=== PATIENT | male | born 1970 | race Asian ===

== ENCOUNTER 2023-09-20 12:33 | Emergency (ER) | payer OTHER ==
[~2023-09-20] VITALS: Ht 162.6 cm; Wt 75.5 kg
[2023-09-20 16:48] VITALS: BP 134/92; PULSE 76; RESP 18; TEMP 97.8; O2SAT 99
== END 2023-09-20 16:59 | disposition home or self-care (01) ==
LOC: ER 12:34
DX: S30.0XXA Contusion of lower back and pelvis, initial encounter (principal); W19.XXXA Unspecified fall, initial encounter; Y93.89 Activity, other specified; Y92.89 Other specified places as the place of occurrence of the external cause; Y99.8 Other external cause status
CPT/HCPCS: 72040; 72100; 73030; 73630; 99284